=== PATIENT | male | born 2000 | race Two or more races ===

== ENCOUNTER 2022-10-02 23:30 | Emergency (ER) | payer MEDICAID, OTHER ==
[~2022-10-02] VITALS: Ht 162.6 cm; Wt 59.1 kg
[2022-10-02 23:46] VITALS: BP 125/77
[2022-10-03] MEDS ORDERED: CYCL-839 PO (02:01)
[2022-10-03] MEDS ORDERED: IBUP800T27 PO (02:01)
== END 2022-10-03 02:18 | disposition home or self-care (01) ==
LOC: ER 23:30
DX: S86.911A Strain of unspecified muscle(s) and tendon(s) at lower leg level, right leg, initial encounter (principal); S46.911A Strain of unspecified muscle, fascia and tendon at shoulder and upper arm level, right arm, initial encounter; Z79.1 Long term (current) use of non-steroidal anti-inflammatories (NSAID); Z79.899 Other long term (current) drug therapy; V86.55XA Driver of 3- or 4- wheeled all-terrain vehicle (ATV) injured in nontraffic accident, initial encounter; Y93.89 Activity, other specified; Y92.89 Other specified places as the place of occurrence of the external cause; Y99.8 Other external cause status
CPT/HCPCS: 73060; 73562